=== PATIENT | female | born 1960 | race Caucasian/White ===

== ENCOUNTER → 2017-01-24 | Outpatient (CLI) | payer BC | LOC: KOH-I 13:21 | DX: M54.9 Dorsalgia, unspecified (principal); R05 Cough | CPT/HCPCS: 71020; 72080; 72110 ==

== ENCOUNTER → 2017-01-26 | Outpatient (CLI) | payer BC | LOC: KOH-I 14:30 | DX: R10.10 Upper abdominal pain, unspecified (principal); R80.9 Proteinuria, unspecified; N20.0 Calculus of kidney; M47.814 Spondylosis without myelopathy or radiculopathy, thoracic region; Z98.890 Other specified postprocedural states; N27.1 Small kidney, bilateral | CPT/HCPCS: 74176; 76775 ==

== ENCOUNTER → 2017-02-07 | Outpatient (CLI) | payer BC | LOC: MAMO 15:20 | DX: Z12.31 Encounter for screening mammogram for malignant neoplasm of breast (principal) | CPT/HCPCS: G0202 ==

== ENCOUNTER → 2017-08-08 | Outpatient (CLI) | payer BC | LOC: US 09:00 → NM 09:30 | DX: E06.9 Thyroiditis, unspecified (principal); R93.8 Abnormal findings on diagnostic imaging of other specified body structures; E04.1 Nontoxic single thyroid nodule | CPT/HCPCS: 76536; 78012; A9516 ==

== ENCOUNTER → 2020-12-29 | Outpatient (CLI) | payer BC, OTHER ==
[~2020-12-29] MED LIST: ACIPHEX20 MG PO; ALLEGRA ALLERGY60 MG PO; APPLE CIDER VI600 MG PO; CELEBREX200 MG PO; DETROL2 MG PO; EFFEXOR XR 150150 MG PO; FLAGYL500 MG PO; LEVAQUIN500 MG PO; LOVASTATIN20 MG PO; NAPROSYN EC 50500 MG PO; NORCO 7.5-3251 EACH PO; VANCOCIN 125 M125 MG PO; ZESTRIL/PRINIVI10 MG PO
== END ==
LOC: KOH-I 13:55
DX: M25.511 Pain in right shoulder (principal); M19.011 Primary osteoarthritis, right shoulder
CPT/HCPCS: 73030

== ENCOUNTER → 2021-03-17 | Outpatient (CLI) | payer BC, OTHER | LOC: KOH-I 11:15 | DX: M54.2 Cervicalgia (principal); M47.812 Spondylosis without myelopathy or radiculopathy, cervical region | CPT/HCPCS: 72040 ==